=== PATIENT | male | born 1980 | race Caucasian/White ===

== ENCOUNTER 2018-01-17 21:18 | Emergency (ER) | payer MEDICAID ==
[2018-01-17 21:55] VITALS: BP 146/80
--- NOTE | 2018-01-17 22:51 | EDM.PDOC ---
ED HPI GENERAL MEDICAL PROBLEM - General Chief Complaint: Upper Extremity Injury/Pain Stated Complaint: LEFT CLAVICLE POSSIBLE BROKEN Time Seen by Provider: 01/17/18 21:20 Source of Information: Reports: Patient History Limitations: Reports: No Limitations - History of Present Illness Onset: Today Onset Date: 01/17/18 Duration: Constant Location: Reports: Upper Extremity, Left, Radiates to (clavicle left) Quality: Reports: Sharp, Stabbing (increased pain with activity) Severity: Moderate Improves with: Reports: Immobilization Worsens with: Reports: Movement Context: Reports: Trauma (fell on electric skateboard) Associated Symptoms: Reports: No Other Symptoms left clavicle Pain Score (Numeric/FACES): 4 - Related Data Allergies Allergy/AdvReac Type Severity Reaction Status Date / Time No Known Allergies Allergy Verified 01/17/18 21:59 Home Meds: Home Meds Aspirin [Mariluz Chewable] 81 mg PO DAILY 01/17/18 [History] Metoprolol Tartrate [Lopressor] 25 mg PO BID 01/17/18 [History] Nitroglycerin [Nitrostat] 0.3 mg SL ASDIRECTED PRN 01/17/18 [History] Ticagrelor [Brilinta] 90 mg PO BID 01/17/18 [History] atorvaSTATin [Lipitor] 80 mg PO DAILY 01/17/18 [History] Past Medical History - Past Health History Medical/Surgical History: Denies Medical/Surgical History Cardiovascular History: Reports: [place], Stents Other Cardiovascular History: x1 cardiac stent Musculoskeletal History: Reports: Fracture Hematologic History: Reports: Anticoagulation Therapy - Infectious Disease History Infectious Disease History: Reports: Chicken Pox - Past Surgical History Cardiovascular Surgical History: Reports: Coronary Artery Stent Musculoskeletal Surgical History: Reports: Other (See Below) Other Musculoskeletal Surgeries/Procedures:: Boxers fracture right hand surgical repair Social & Family History - Tobacco Use Smoking Status *Q: Never Smoker - Caffeine Use Caffeine Use: Reports: Coffee - Recreational Drug Use Recreational Drug Use: No - Living Situation & Occupation Living situation: Reports: Review of Systems - Review of Systems Review Of Systems: See Below Constitutional: Reports: Other (left clavicle pain) Eyes: Reports: No Symptoms Ears: Reports: No Symptoms Nose: Reports: No Symptoms Mouth/Throat: Reports: No Symptoms Respiratory: Reports: No Symptoms Cardiovascular: Reports: No Symptoms GI/Abdominal: Reports: No Symptoms Genitourinary: Reports: No Symptoms Musculoskeletal: Reports: Shoulder Pain (left), Arm Pain (left) Skin: Reports: No Symptoms Neurological: Reports: No Symptoms Psychiatric: Reports: No Symptoms ED EXAM, GENERAL - Physical Exam Exam: See Below Exam Limited By: No Limitations General Appearance: Alert, WD/WN, No Apparent Distress Eye Exam: Bilateral Eye: Normal Inspection Ears: Normal External Exam Nose: Normal Inspection Head: Atraumatic, Normocephalic Neck: Normal Inspection, Supple, Full Range of Motion Respiratory/Chest: No Respiratory Distress, Lungs Clear, Normal Breath Sounds, No Accessory Muscle Use, Chest Non-Tender, Other (pain in left clavicle) Cardiovascular: Normal Peripheral Pulses, Regular Rate, Rhythm, No Edema, No Gallop, No JVD, No Murmur, No Rub Peripheral Pulses: 2+: Radial (L), Radial (R) Back Exam: Normal Inspection, Full Range of Motion Extremities: No Pedal Edema, Normal Capillary Refill, Arm Pain (left), Other ( left clavicle with bulging, pain extends to left arm. incrased pain with any movement) Neurological: No Motor/Sensory Deficits Psychiatric: Normal Affect, Normal Mood Skin Exam: Warm, Dry, Intact, Normal Color, No Rash Lymphatic: No Adenopathy Course - Vital Signs Last Recorded V/S: Last Vital Signs Temp 36.6 C 01/17/18 22:05 Pulse 91 01/17/18 22:05 Resp 16 01/17/18 22:05 BP 146/80 H 01/17/18 22:05 Pulse Ox 98 01/17/18 22:05 - Orders/Labs/Meds Orders: Active Orders 24 hr Category Date Time Status Clavicle Lt [CR] Stat Exams 01/17/18 21:21 Taken DME for Discharge [COMM] Urgent Oth 01/17/18 22:54 Ordered - Re-Assessments/Exams Free Text/Narrative Re-Assessment/Exam: 01/17/18 patient decline any pain medication xray of left clavicle show a moderately dislocated fracture of the mid shaft , also AC joint separation Consult with Orthopedics -advise to place in sling -medicate for comfort -apply ice intermittently for comfort -will see Kennedy on Sunday in [place] or Sunday at [place]. -patient given phone numbers to make call in am for appt. patient agrees with plan of care Departure - Departure Time of Disposition: 23:11 Disposition: Home, Self-Care 01 Condition: Good Clinical Impression: Fracture of clavicle Qualifiers: Encounter type: initial encounter Clavicle location: shaft Fracture type: closed Fracture alignment: displaced Laterality: left Qualified Code(s): S42.022A - Displaced fracture of shaft of left clavicle, initial encounter for closed fracture - Discharge Information Instructions: Clavicle Fracture, [id number] Referrals: Jaime Beth MD [Primary Care Provider] - Forms: ED Department Discharge Care Plan Goals: left Clavicle fracture; -keep in sling, no lifting with the left arm. -apply ice for comfort -take Tylenol 325mg; 2 tabs every 4 hours as needed for pain -take Hydrocodone 5-325mg; one every 4 to 6 hours as needed for more acute pain #10 Orthopedic Referral -Franc Monk MD Thursday January 18, [address] [phone] or Sunday, January 21, 2018 [place], [place]. - Problem List & Annotations (1) Fracture of clavicle SNOMED Code(s): 35501826 Code(s): S42.009A - FRACTURE OF UNSP PART OF UNSP CLAVICLE, INIT FOR CLOS FX Status: Acute Priority: High Qualifiers: Encounter type: initial encounter Clavicle location: shaft Fracture type : closed Fracture alignment: displaced Laterality: left Qualified Code(s) : S42.022A - Displaced fracture of shaft of left clavicle, initial encounter for closed fracture - Problem List Review Problem List Initiated/Reviewed/Updated: Yes - My Orders Last 24 Hours: My Active Orders 01/17/18 21:21 Clavicle Lt [CR] Stat 01/17/18 22:54 DME for Discharge [COMM] Urgent - Assessment/Plan Last 24 Hours: My Active Orders 01/17/18 21:21 Clavicle Lt [CR] Stat 01/17/18 22:54 DME for Discharge [COMM] Urgent Plan: left Clavicle fracture; -keep in sling, no lifting with the left arm. -apply ice for comfort -take Tylenol 325mg; 2 tabs every 4 hours as needed for pain -take Hydrocodone 5-325mg; one every 4 to 6 hours as needed for more acute pain #10 Orthopedic Referral -Franc Monk MD Thursday January 18, [address] [phone] or Sunday, January 21, 2018 [place], [place].
--- NOTE | 2018-01-18 09:08 | CR ---
Clavicle Lt INDICATION: pain, injury COMPARISON: None FINDINGS: 2 views. Clavicle fracture with inferior displacement and overriding of the distal fract ure fragment. AC joint intact.
== END 2018-01-17 23:11 | disposition home or self-care (01) ==
LOC: JP.ED 21:18
DX: S42.022A Displaced fracture of shaft of left clavicle, initial encounter for closed fracture (principal); Z79.82 Long term (current) use of aspirin; Z79.899 Other long term (current) drug therapy; I25.2 Old myocardial infarction; Z79.01 Long term (current) use of anticoagulants; V00.141A Fall from scooter (nonmotorized), initial encounter
CPT/HCPCS: 73000-26-LT; 73000-LT; 99284

== ENCOUNTER 2024-06-08 10:50 | Emergency (ER) | payer MEDICAID ==
[2024-06-08 12:09] LABS: BASOPHILS ABSOLUTE AUTO 0.05 K/uL (0.00-0.10); BASOPHILS PERCENT AUTO 0.9 % (0.1-1.3); EOSINOPHILS ABSOLUTE AUTO 0.21 K/uL (0.00-0.40); EOSINOPHILS PERCENT AUTO 3.7 % (0.0-5.4); HEMATOCRIT 40.9 % (38.4-49.7); HEMOGLOBIN 14.4 g/dL (12.9-16.9); IMMATURE GRAN PERCENT AUTO 0.2 % (0.0-0.7); LYMPHOCYTES PERCENT AUTO 29.7 % (11.4-47.7); MEAN CORPUSCULAR HEMOGLOBIN 33.7 pg (31.6-35.5); MEAN CORPUSCULAR HGB CONC 35.2 g/dL (31.6-35.5); MEAN CORPUSCULAR VOLUME 95.8 fL (81.4-99.0); MONOCYTES ABSOLUTE AUTO 0.45 K/uL (0.20-0.90); MONOCYTES PERCENT AUTO 7.9 % (3.3-12.6); NEUTROPHILS ABSOLUTE AUTO 3.31 K/uL (1.0-7.6); NEUTROPHILS PERCENT AUTO 57.6 % (40.0-78.1); PLATELET COUNT,PLT 179 K/uL (130-375); RED BLOOD CELL COUNT 4.27 M/uL (4.14-5.76); WHITE BLOOD CELL COUNT,WBC 5.7 K/uL (3.2-11.0)
[2024-06-08 12:18] LABS: IMMATURE GRAN ABSOLUTE AUTO 0.01 K/uL (0.00-0.23)
[2024-06-08 12:23] LABS: ANION GAP 7.6 mmol/L (5.0-14.0); CALCIUM 9.1 mg/dL (8.5-10.1); CREATININE 1.1 mg/dL (0.8-1.3); EST CRCL DRUG DOSING (CG) 75.32 mL/min; POTASSIUM,K 4.3 mmol/L (3.6-5.2)
[2024-06-08] MEDS: Sodium Chloride 0.9% 1,000 ML IV ONE (12:33)
[2024-06-08] MEDS: Sodium Chloride 0.9% 500 ML IV ONE ×2 (12:34→12:35)
[2024-06-08] MEDS: Ondansetron 4 MG/2 ML SDV IVPUSH ONE (12:35)
[2024-06-08] MEDS: Sodium Chloride 0.9% 10 ML Syringe FLUSH PRN (12:35)
[2024-06-08] MEDS: hydrOXYzine HCl 10 MG Tab PO ONE (13:04)
[2024-06-08 13:21] LABS: A/G RATIO 1.3 (1.2-2.2); ALBUMIN 3.8 g/dL (3.4-5.0); BILIRUBIN DIRECT 0.11 mg/dL (0.0-0.2); BILIRUBIN INDIRECT 0.09; BILIRUBIN TOTAL 0.2 mg/dL (0.2-1.0); PROTEIN TOTAL,TP 6.7 g/dL (6.4-8.2)
[2024-06-08 13:43] VITALS: BP 138/87; PULSE 81
[2024-06-08 13:51] LABS: AMPHETAMINES SCREEN, URINE NEGATIVE (NEGATIVE); METHAMPHETAMINES SCREEN, URINE NEGATIVE (NEGATIVE)
[2024-06-08 13:52] LABS: BARBITURATE SCREEN,URINE NEGATIVE (NEGATIVE); BENZODIAZEPINES SCREEN,URINE NEGATIVE (NEGATIVE); METHADONE SCREEN, URINE NEGATIVE (NEGATIVE); OXYCODONE SCREEN,URINE NEGATIVE (NEGATIVE); PROPOXYPHENE SCREEN,URINE NEGATIVE (NEGATIVE); THC SCREEN,URINE 50 NG/ML NEGATIVE (NEGATIVE)
== END 2024-06-08 17:54 ==
LOC: JP.ED 10:50
DX: F19.10 Other psychoactive substance abuse, uncomplicated (principal); I10 Essential (primary) hypertension; I25.2 Old myocardial infarction; E78.00 Pure hypercholesterolemia, unspecified; Z79.82 Long term (current) use of aspirin; Z79.899 Other long term (current) drug therapy; Z86.16 Personal history of COVID-19
CPT/HCPCS: 36415; 80048; 80076; 80305; 80307; 85025; 99284; A9270; J3490; J7040; J2405